=== PATIENT | male | born 1945 | race Caucasian/White ===

== ENCOUNTER 2023-08-11 12:36 | Emergency (ER) | payer MEDICARE, SELFPAY ==
[2023-08-11 12:44] VITALS: BP 157/88
[2023-08-11 13:11] LABS: % Basophils 0.6 % (0-2); % Eosinophils 0.6 % (0-6); % Immature Granulocytes 0.6 % (0-0.5); % Lymphocytes 12.2 % (20.5-51.1); % Monocytes 7.8 % (1.7-9.3); % Neutrophils 78.2 % (42.2-75.2); Absolute Basophils 0.1 10^3/uL (0-0.2); Absolute Eosinophils 0.1 10^3/uL (0-0.7); Absolute Immature Granulocytes 0.1 10^3/uL (0-0.05); Absolute Lymphocytes 1.5 10^3/uL (1.2-3.4); Absolute Neutrophils 9.8 10^3/uL (1.4-6.5); Hematocrit 40.5 % (39.0-52.0); Hemoglobin 13.6 g/dL (13.0-18.0); Mean Corp Hgb Conc. 33.6 g/dL (33.0-37.0); Mean Corpuscular Hgb 32.6 pg (27.0-31.0); Mean Corpuscular Volume 97.1 fL (80.0-94.0); Mean Platelet Volume 10.6 fL (7.4-10.4); Nucleated Red Blood Cells % 0 % (-); Platelet Count 144 10^3/uL (130-400); Red Blood Cell Count 4.17 10^6/uL (4.70-6.10); Red Cell Dist. Width 13.8 % (11.5-14.5); White Blood Cell Count 12.5 10^3/uL (4.8-10.8)
[2023-08-11 13:22] LABS: ALT (SGPT) 23 U/L (0-50); AST (SGOT) 27 U/L (17-59); Albumin 4.5 g/dl (3.5-5.0); Alkaline Phosphatase 56 U/L (38-126); Blood Urea Nitrogen 22 mg/dl (9-20); Calcium 9.1 mg/dl (8.4-10.2); Carbon Dioxide 23 mmol/L (22-30); Chloride 105 mmol/L (98-107); Glucose 97 mg/dl (70-99); Potassium 4.4 mmol/L (3.5-5.1); Sodium 138 mmol/L (135-145); Total Bilirubin 1.1 mg/dl (0.2-1.3); Total Protein 7.2 g/dl (6.3-8.2); eGFR > 60.00
[2023-08-11 13:40] LABS: Urine Albumin Trace (Neg - Trace); Urine Bilirubin Negative (Negative); Urine Character Clear (Clear); Urine Color Yellow; Urine Glucose Negative (Negative); Urine Ketone Negative (Negative); Urine Leukocyte 2+ (Negative); Urine Nitrite Negative (Negative); Urine Occult Blood 4+ (Negative); Urine Urobilinogen Negative (Neg - 1+)
[2023-08-11 13:53] LABS: Urine Bacteria Few (Negative); Urine White Cell >100 /HPF (0-5)
--- NOTE | 2023-08-11 17:39 | ED.GENMED ---
History of Present Illness
General
Chief Complaint: Male Genito-Urinary Symptoms
Source: patient
Exam Limitations: none
Time Seen by Provider: 08/11/23 17:39
Nursing documentation reviewed up to this point in time: agreed with
Travel History
Have you had any contact with someone who has COVID-19?: No
Do you have any symptoms of coronavirus? Fever > 100 degrees, chills, cough, shortness of breath, sore throat, loss of taste or smell, muscle aches, or headache?: No
History of Present Illness
History of Present Illness:
78-year-old male with history of HTN, HLD, prostate CA with prostate biopsy twice presents now stating he's had frequency, urgency to urinate and hematuria past 4 days. Initially intermittent blood but yesterday had brownish urine all day and today
urine with clots.
Saw his Urologist in [place] yesterday, did a bladder scan with no post void urine, no ATBX prescribed.
Denies fever/chills. Has bilateral pelvic 'pressure discomfort.' Denies n/v/d/c. Denies flank pain
Past History
Past History
ED Past Medical History: HTN, Hypercholesterolemia and Other (BPH, had prostate biopsy x 2, of all of the 13 or so specimens, one had 1/3 Lucas score of 7 so treatment not indicated. )
Social History
Tobacco: Non-smoker
Alcohol: Daily (wine)
Drug: None
Personal:
Living: with family
Employment: Retired
Review of Systems
Review of Systems
Allergies reviewed?: Yes
All Other Systems: ROS reviewed and negative except as documented in HPI and ROS
Constitutional: Denies fever, fatigue or chills
Respiratory: Denies trouble breathing
Cardiac: Denies chest pain
ABD/GI: Reports abdominal pain (lower pelvic discomfort); Denies nausea, vomiting, diarrhea, constipated or anorexia
: Reports bleeding and dark urine; Denies dysuria, flank pain, incontinence or urgency
Musculoskeletal: Reports no symptoms
Skin: Reports no symptoms
Neurological: Reports no symptoms
Phy Exam
Physical Exam
Physical Exam:
GENERAL: No acute distress. A&Ox3.
CONSTITUTIONAL: Afebrile.
RESPIRATORY: Regular respirations, nonlabored, lungs clear.
CARDIOVASCULAR: Regular rate and rhythm, no murmurs, no rubs.
GI: Soft, nontender, normal BS
MUSCULOSKELETAL: Moves with ease. Well perfused.
SKIN: Warm, dry, pink
PSYCH: Normal mood and affect. Well kept, interactive and appropriate
NEUROLOGIC: Awake, alert and oriented. No focal neurological deficits
Course
Orders/Labs/Results
Orders:
Orders
08/11/23 12:56
Complete Blood Count/With Diff Urgent
Comprehensive Metabolic Panel Urgent
08/11/23 13:32
Urinalysis Reflex To Culture Urgent
Date Specimen was Collected: 08/11/23
Time Specimen was Collected: 13:30
Urine Microscopic Reflex Cult Urgent
Urine Culture Urgent
MARLON Source: U
Specimen Description:
Date Specimen was Collected: 08/11/23
Time Specimen was Collected: 13:30
08/11/23 18:35
CT Abd/pel Without Iv Or Oral Urgent
Comment:
Reason For Exam: hematuria
08/11/23 18:50
CefTRIAXone [Rocephin] 1,000 mg IV NOW STA
08/11/23 18:53
0.9% Sodium Chloride 500 ml [Nss] 500 ml IV BOLUS
Abnormal Lab Results
08/11/23 08/11/23
12:56 13:32
WBC 12.5 H 10^3/uL
(4.8-10.8)
RBC 4.17 L 10^6/uL
(4.70-6.10)
MCV 97.1 H fL
(80.0-94.0)
MCH 32.6 H pg
(27.0-31.0)
MPV 10.6 H fL
(7.4-10.4)
Abs Immat Gran (auto) 0.1 H 10^3/uL
(0-0.05)
Absolute Neuts (auto) 9.8 H 10^3/uL
(1.4-6.5)
Absolute Monos (auto) 1.0 H 10^3/uL
(0.1-0.6)
Immature Gran % 0.6 H %
(0-0.5)
Neutrophils % 78.2 H %
(42.2-75.2)
Lymphocytes % 12.2 L %
(20.5-51.1)
BUN 22 H mg/dl
(9-20)
Ur Occult Blood Reflex 4+ A
(Negative)
Leukocyte Esterase Rfl 2+ A
(Negative)
Urine RBC 3-6 A /HPF
(0-2)
Urine WBC (Reflex) >100 A /HPF
(0-5)
Urine Bacteria (Reflex) Few A
(Negative)
08/11/23 12:56
08/11/23 12:56
Vital Signs
Initial and Last Documented VS:
Initial Vital Signs
Temp Pulse Resp BP Pulse Ox
98.1 F 84 16 157/88 97
08/11/23 12:44 08/11/23 12:44 08/11/23 12:44 08/11/23 12:44 08/11/23 12:44
Last Documented Vital Signs
Temp Pulse Resp BP Pulse Ox
98.3 F 59 17 156/85 96
08/11/23 18:05 08/11/23 19:55 08/11/23 18:05 08/11/23 19:55 08/11/23 19:55
MDM/Problems Addressed
Differential Diagnosis Includes:
UTI, kidney stone, hemorrhagic cystitis, malignancy
MDM/Problems Addressed:
78-year-old male with history of HTN, HLD, prostate CA with prostate biopsy twice presents now stating he's had frequency, urgency to urinate and hematuria past 4 days. Initially intermittent blood but yesterday had brownish urine all day and today
urine with clots.
Saw his Urologist in [place] yesterday, did a bladder scan with no post void urine, no ATBX prescribed.
Denies fever/chills. Has bilateral pelvic 'pressure discomfort.' Denies n/v/d/c. Denies flank pain
Afebrile, NAD
6:00 p.m.
CBC: WBC 12.5 Hgb normal
CMP: BUN 22 Creat normal
U/A: +4 occult blood, 2+Leukocyte Est, neg Nitrite 3-6 RBC, >100 WBC. few bacteria
Abd/pelvic CT scan: Radiology report read: IMPRESSION: No acute pathology of the abdomen nor pelvis identified.
Tiny right pleural effusion.
Bilateral simple renal cysts.
Mild diffuse bladder wall thickening. This may be partially due to limited distention. Cystitis and bladder outlet obstruction not excluded.
Mild prostate hypertrophy.
Moderate fecal material in the colon.
Few too small to characterize hypodense hepatic lesions likely small cysts or hemangiomas.
Will treat for UTI cystitis, he will follow up with his Urologist in [place]
Rx for Cefdinir sent to his pharmacy
He and are comfortable with this plan.
*Critical Care Note
Total Time (30-74mins, 75-104mins- exclusive of procedures): Not Applicable
ED Attending Note
-
Portions of this chart may have been created with voice recognition software.� Occasional wrong word or��sound alike� substitutions may have occurred due to the inherent limitations of voice recognition software.
Discharge Plan
Departure
Patient Disposition: Home (Routine Discharge)
Date of Disposition: 08/11/23
Time of Disposition: 19:53
Patient with high blood pressure during this ER visit?: No
Condition: Good
Discharge Problem:
Acute hemorrhagic cystitis, Acute UTI
Instructions: Blood in the Urine (Hematuria), Adult (DC), Urinary Tract Infection, Adult ED
Prescriptions:
New
cefdinir 300 mg capsule
300 mg PO BID Qty: 14 0RF
Referrals:
[place], Urology [Other] - Tomorrow
Ezequiel Juan MD [Family Provider] -
Activity Restrictions/Additional Instructions:
As we discussed, you have a urinary tract infection, with the bleeding is probably caused by cystitis or irritation of the bladder due to the urinary tract infection.
I provided you a copy of your CAT scan results as well as all of your lab work
Call your urologist tomorrow to discuss
You received Rocephin 1 g intravenously today and I sent a prescription to your pharmacy for cefdinir to start tomorrow, twice a day
Interventions
Interventions:
*Risk Screen - Suicide Last Done: 08/11/23 20:45
*General Assessment Last Done: 08/11/23 20:45
*Neglect/Abuse Screening Last Done: 08/11/23 20:45
ED- Fall Risk Assessment Last Done: 08/11/23 20:45
*ED COVID-19 Vaccine History Last Done: 08/11/23 20:45
*Nursing Disposition Last Done: 08/11/23 20:45
ED-Male Genitourinary Assessment Last Done: 08/11/23 20:45
Discharge Date and Time
Discharge Date/Time: 08/11/23 21:08
Print Language: KYRGYZ
[2023-08-11 18:05] VITALS: BP 161/91
[2023-08-11] MEDS: ROCEPHIN 1000 MG IV (19:51)
[2023-08-11] MEDS: NSS 500 IV (19:52)
[2023-08-11 19:55] VITALS: BP 156/85
== END 2023-08-11 21:08 | disposition home or self-care (01) ==
LOC: EMR 12:36
PROVIDERS: Emergency Medicine; EMERGENCY PHYSICIAN Emergency Medicine; FAMILY PHYSICIAN Internal Medicine
DX: N40.0 Benign prostatic hyperplasia without lower urinary tract symptoms (principal); N30.01 Acute cystitis with hematuria; N39.0 Urinary tract infection, site not specified; I10 Essential (primary) hypertension; E78.5 Hyperlipidemia, unspecified
CPT/HCPCS: 99284; 96374; 96361; 51798; 74176; 80053; 81003; 81015; 85025; 87086; 87088; 87186

== ENCOUNTER 2024-04-03 09:35 | Emergency (ER) | payer MEDICARE, SELFPAY ==
[2024-04-03 09:48] VITALS: BP 150/85
[2024-04-03 10:19] LABS: Urine Albumin 1+ (Neg - Trace); Urine Bilirubin Negative (Negative); Urine Character Very Cloudy (Clear); Urine Color Yellow; Urine Glucose Negative (Negative); Urine Ketone Negative (Negative); Urine Leukocyte 2+ (Negative); Urine Nitrite Positive (Negative); Urine Occult Blood 4+ (Negative); Urine Specific Gravity 1.015 (<1.030); Urine Urobilinogen Negative (Neg - 1+)
[2024-04-03 10:23] LABS: ALT (SGPT) 23 U/L (0-50); AST (SGOT) 25 U/L (17-59); Albumin 4.6 g/dl (3.5-5.0); Alkaline Phosphatase 60 U/L (38-126); Blood Urea Nitrogen 20 mg/dl (9-20); Calcium 9.1 mg/dl (8.4-10.2); Carbon Dioxide 28 mmol/L (22-30); Chloride 103 mmol/L (98-107); Glucose 108 mg/dl (70-99); Potassium 3.9 mmol/L (3.5-5.1); Sodium 141 mmol/L (135-145); Total Bilirubin 1.1 mg/dl (0.2-1.3); Total Protein 7.1 g/dl (6.3-8.2); eGFR 55.53
[2024-04-03 10:32] LABS: % Basophils 0.7 % (0-2); % Eosinophils 1.2 % (0-6); % Immature Granulocytes 0.2 % (0-0.5); % Neutrophils 72.9 % (42.2-75.2); Absolute Basophils 0.1 10^3/uL (0-0.2); Absolute Eosinophils 0.1 10^3/uL (0-0.7); Absolute Lymphocytes 1.4 10^3/uL (1.2-3.4); Absolute Monocytes 0.7 10^3/uL (0.1-0.6); Absolute Neutrophils 6.1 10^3/uL (1.4-6.5); Hematocrit 42.3 % (39.0-52.0); Hemoglobin 14.3 g/dL (13.0-18.0); Mean Corp Hgb Conc. 33.8 g/dL (33.0-37.0); Mean Corpuscular Hgb 32.9 pg (27.0-31.0); Mean Corpuscular Volume 97.2 fL (80.0-94.0); Mean Platelet Volume 10.9 fL (7.4-10.4); Nucleated Red Blood Cells % 0 % (-); Platelet Count 150 10^3/uL (130-400); Red Blood Cell Count 4.35 10^6/uL (4.70-6.10); Red Cell Dist. Width 13.5 % (11.5-14.5); White Blood Cell Count 8.4 10^3/uL (4.8-10.8)
[2024-04-03 11:02] LABS: Urine Red Blood Cell 40-50 /HPF (0-2); Urine White Cell >100 /HPF (0-5)
[2024-04-03 11:03] LABS: Urine Bacteria Many (Negative)
[2024-04-03 11:07] VITALS: BMI 28.2
--- NOTE | 2024-04-03 11:14 | ED.GENMED ---
Addendum entered and electronically signed by Nathan Jacobson PA-C 04/05/24 07:50:
Urine culture with greater than 100,000 colony-forming units on the preliminary results. On cefdinir. Sensitivities pending
Original Note:
History of Present Illness
General
Chief Complaint: Urinary Symptoms
Source: patient
Exam Limitations: none
Time Seen by Provider: 04/03/24 10:47
History of Present Illness
History of Present Illness:
78yoM with a history of hypertension, hyperlipidemia, and BPH presenting for evaluation of UTI symptoms. Symptoms began 3 days ago with some dysuria. He started to have urinary frequency last night and was up every hour to go to the bathroom. He
also is having suprapubic discomfort. He has a history of UTIs and this feels the same. He is otherwise feeling well. He denies any urinary retention, flank pain, fevers, chills, nausea, vomiting.
Past History
Past History
ED Past Medical History: HTN, Hypercholesterolemia and Other (BPH, had prostate biopsy x 2, of all of the 13 or so specimens, one had 1/3 Evans score of 7 so treatment not indicated. )
Social History
Tobacco: Non-smoker
Alcohol: Daily (wine)
Drug: None
Personal:
Living: with family
Employment: Retired
Phy Exam
General Physical Exam
General Presentation: well appearing and no apparent distress
General age: appears stated age
General Skin: warm and dry
General Habitus: normal
General Mental: alert
ENT Exam
ENT Exam: normocephalic
Pulmonary Exam
Pulmonary Exam: no respiratory distress
Gastrointestinal Exam
Gastrointestinal Exam: non tender, soft, non distended and no cva tenderness
Neurological Exam
Neurological Exam: alert
Kelly Coma Scale
Eye Opening: Spontaneous
Verbal Response: Oriented
Motor Response: Obeys Commands
GCS Total Score: 15
Skin Exam
Skin Exam: normal color and warm/dry
Psychiatric Exam
Psychiatric Exam: normal mood/affect
Course
Orders/Labs/Results
Orders:
Orders
04/03/24 10:02
Complete Blood Count/With Diff Urgent
Comprehensive Metabolic Panel Urgent
Urinalysis Reflex To Culture Urgent
Date Specimen was Collected: 04/03/24
Time Specimen was Collected: 09:50
Urine Microscopic Reflex Cult Urgent
Urine Culture Urgent
MARLON Source: U
Specimen Description:
Date Specimen was Collected: 04/03/24
Time Specimen was Collected: 09:50
Abnormal Lab Results
04/03/24
10:02
RBC 4.35 L 10^6/uL
(4.70-6.10)
MCV 97.2 H fL
(80.0-94.0)
MCH 32.9 H pg
(27.0-31.0)
MPV 10.9 H fL
(7.4-10.4)
Absolute Monos (auto) 0.7 H 10^3/uL
(0.1-0.6)
Lymphocytes % 17.0 L %
(20.5-51.1)
Glucose 108 H mg/dl
(70-99)
Ur Occult Blood Reflex 4+ A
(Negative)
Urine Nitrite (Reflex) Positive A
(Negative)
Leukocyte Esterase Rfl 2+ A
(Negative)
Urine RBC 40-50 A /HPF
(0-2)
Urine WBC (Reflex) >100 A /HPF
(0-5)
Urine Bacteria (Reflex) Many A
(Negative)
Urine Albumin (Reflex) 1+ A
(Neg - Trace)
04/03/24 10:02
04/03/24 10:02
Vital Signs
Initial and Last Documented VS:
Initial Vital Signs
Temp Pulse Resp BP Pulse Ox
98.0 F 94 16 150/85 98
04/03/24 09:48 04/03/24 09:48 04/03/24 09:48 04/03/24 09:48 04/03/24 09:48
Last Documented Vital Signs
Temp Pulse Resp BP Pulse Ox
98.0 F 94 17 150/85 98
04/03/24 09:48 04/03/24 09:48 04/03/24 11:08 04/03/24 09:48 04/03/24 09:48
MDM/Problems Addressed
Differential Diagnosis Includes:
78yoM here with UTI symptoms x 3 days. C/o dysuria, frequency, suprapubic discomfort. No f/c, flank pain, vomiting. VSS. He is well appearing in no distress. No abdominal or CVA tenderness on exam. Differential diagnosis includes but is not limited
to: UTI, urethritis, no clinical evidence of pyelonephritis
Labs and UA obtained in triage. UA is nitrite positive with >100 WBCs. White count and renal function is normal. No indication for imaging at this time. Prior urine culture reviewed. Will start patient on a course of cefdinir. Advised f/u with PCP
and ED return precautions discussed. Patient in agreement with plan and was discharged in stable condition.
*Critical Care Note
Total Time (30-74mins, 75-104mins- exclusive of procedures): Not Applicable
ED Attending Note
-
Portions of this chart may have been created with voice recognition software.� Occasional wrong word or��sound alike� substitutions may have occurred due to the inherent limitations of voice recognition software.
Discharge Plan
Departure
Patient Disposition: Home (Routine Discharge)
Date of Disposition: 04/03/24
Time of Disposition: 11:17
Patient with high blood pressure during this ER visit?: Yes
Discharge Problem:
Urinary tract infection
Instructions: Urinary Tract Infection, Adult (DC)
Prescriptions:
New
cefdinir 300 mg capsule
300 mg PO BID Qty: 14 0RF
No Action
cefdinir 300 mg capsule
300 mg PO BID Qty: 14 0RF
Referrals:
Ezequiel Juan MD [Family Provider] -
Activity Restrictions/Additional Instructions:
Take antibiotics as prescribed. Drink plenty of fluids.
Please follow-up with your family doctor. Return to the ER with any worsening symptoms, fevers, vomiting, flank pain, or if your symptoms do not improve in 3-4 days.
Interventions
Interventions:
*Risk Screen - Suicide Last Done: 04/03/24 09:48
*General Assessment Last Done: 04/03/24 11:08
*Neglect/Abuse Screening Last Done: 04/03/24 09:48
ED- Fall Risk Assessment Last Done: 04/03/24 11:07
*Nursing Disposition Last Done: 04/03/24 11:51
ED-Male Genitourinary Assessment Last Done: 04/03/24 11:07
Discharge Date and Time
Discharge Date/Time: 04/03/24 11:51
Print Language: SYRIAN
== END 2024-04-03 11:51 | disposition home or self-care (01) ==
LOC: EMR 09:35
PROVIDERS: EMERGENCY PHYSICIAN Emergency Medicine; FAMILY PHYSICIAN Internal Medicine
DX: N39.0 Urinary tract infection, site not specified (principal); R10.30 Lower abdominal pain, unspecified; I10 Essential (primary) hypertension; E78.00 Pure hypercholesterolemia, unspecified; N40.1 Benign prostatic hyperplasia with lower urinary tract symptoms; R35.0 Frequency of micturition; Z87.440 Personal history of urinary (tract) infections; Z91.048 Other nonmedicinal substance allergy status
CPT/HCPCS: 99283; 80053; 81003; 81015; 85025; 87077; 87086; 87186